=== PATIENT | male | born 1965 | race Caucasian/White ===

== ENCOUNTER 2022-05-28 13:51 | Emergency (ER) | payer OTHER, SELFPAY ==
[2022-05-28 14:18] VITALS: BP 131/99; PULSE 83; RESP 18; TEMP 36.8; O2SAT 97; BMI 36.5
--- NOTE | 2022-05-28 14:51 | ED.GENADULT ---
HPI - General Adult General Date Seen: 05/28/22 Chief complaint: Bug Bite Stated complaint: Mosquito bite on LT foot swollen and black Time Seen by Provider: 05/28/22 13:56 Source: patient History of Present Illness HPI narrative: Patient is a 56-year-old male who is here for evaluation of pain and redness in his left foot and ankle after an insect bite. He says that he was outside on evening, something bit him although he did not see exactly what it was. He assumes it was a mosquito. He did have a lot of reaction to it until yesterday, Sunday, when he developed redness and mild pain in his foot and ankle. He does not have a lot of itching. He does typically react somewhat to bug bites and so it is not that unusual for him, but his is in the hospital here for pancreatitis and it was recommended that he come get it checked out. He has not had any fevers or systemic complaints. Denies significant medical history aside from high blood pressure. Does not have diabetes. He has not taken any medications for this. Related Data Home Medications Medication Instructions Recorded Confirmed aspirin 81 mg capsule 81 mg PO DAILY 05/28/22 05/28/22 atorvastatin 10 mg tablet mg 05/28/22 lisinopril 10 mg tablet mg 05/28/22 Allergies Allergy/AdvReac Type Severity Reaction Status Date / Time Penicillins Allergy Intermediate Verified 05/28/22 14:21 Review of Systems Status of ROS: Reports: 10 or more systems reviewed and unremarkable except as noted in History and below Exam Narrative: Exam Narrative: Vital signs as noted above. In general, an alert, well-appearing patient. Head: Normocephalic, atraumatic. Eyes: Pupils are equal reactive. Extraocular movements are full. Conjunctivae are normal. ENT: Mucous membranes are moist. Throat is normal. Neck: Supple without lymphadenopathy. Heart: Regular rate and rhythm. No murmur or rub. Lungs: Clear bilaterally. No increased work of breathing, crackles or wheezes. Abdomen: Soft and nontender. No organomegaly. Extremities: On the left, there is a an insect bite near the medial ankle which has some blackish as sharp over it. Surrounding it on the medial ankle and into the foot, there is some edema and erythema extending to the distal lower leg. There is warmth to this, there is no fluctuance. No blistering. Dorsalis pedis pulse is normal. Neurologic: Patient is alert and oriented to person and place. Speech is fluent. Face is symmetric. Moves all extremities equally. Affect: Normal. Skin: Warm and dry. Well perfused. Const: Vital Signs, click to edit/add: Vital Signs - 24 hr 05/28/22 14:18 Temperature 98.3 F Pulse Rate [Pulse Oximeter] 83 Respiratory Rate 18 Blood Pressure [Ri ght Upper Arm] 131/99 H Pulse Oximetry 97 Oxygen Delivery Me thod Room Air Course Course Hospital Course: Discussed with him that in almost all cases this type of reaction is hypersensitivity and not cellulitis. I think arguing against this in his case is the fact that his response was delayed by home was 2 days, and the fact that he does not have any itching at all and his symptoms are only pain. In addition, he has erythema that is now extending up into his lower leg and involves most of his foot, and on balance I think he is best served by covering for possible cellulitis at this time. I did suggest to him that he also taken in histamine such as Zyrtec just to cover for hypersensitivity as well. I am prescribing Keflex. If he has dramatic worsening of redness, swelling or pain, if he develops new symptoms such as fever, chills etcetera he should be seen again. Vital Signs Vital signs: Initial Vital Signs Temperature 98.3 F 05/28/22 14:18 Temperature Source Temporal Artery Scan 05/28/22 14:18 Pulse Rate 83 05/28/22 14:18 Respiratory Rate 18 05/28/22 14:18 Blood Pressure 131/99 H 05/28/22 14:18 Blood Pressure Mean 109 05/28/22 14:18 Blood Pressure Position Supine 05/28/22 14:18 Pulse Oximetry 97 05/28/22 14:18 Oxygen Delivery Method 05/28/22 14:18 Vital Signs Temperature 98.3 F 05/28/22 14:18 Pulse Rate 83 05/28/22 14:18 Respiratory Rate 18 05/28/22 14:18 Blood Pressure 131/99 H 05/28/22 14:18 Pulse Oximetry 97 05/28/22 14:18 Oxygen Delivery Method 05/28/22 14:18 Temperature 98.3 F 05/28/22 14:18 Pulse Rate 83 05/28/22 14:18 Respiratory Rate 18 05/28/22 14:18 Blood Pressure 131/99 H 05/28/22 14:18 Pulse Oximetry 97 05/28/22 14:18 Oxygen Delivery Method 05/28/22 14:18 Discharge Plan Discharge Clinical Impression: Cellulitis Patient Disposition: Home, Self-Care Condition: Stable Instructions: Cellulitis (ED) Additional Instructions: Antibiotic as prescribed. I would also recommend taking an antihistamine such as Zyrtec daily, as there is often hypersensitivity reaction associated with insect bites that can be difficult to differentiate from cellulitis. If you have acute worsening, significant redness or swelling, or new symptoms such as fever, chills, vomiting you should be seen again. Prescriptions: No Action atorvastatin 10 mg tablet lisinopril 10 mg tablet Label Comments: TAKE 1 TABLET BY MOUTH AT BEDTIME aspirin 81 mg capsule 81 mg PO DAILY Follow Up/Referrals: Jonh Banerjee MD [Primary Care Provider] - Stand Alone Forms: [employer] Info Instructions
== END 2022-05-28 14:49 | disposition home or self-care (01) ==
LOC: ED 14:42
PROVIDERS: Emergency Provider Emergency Medicine; PCP Family Medicine
DX: S90.562A Insect bite (nonvenomous), left ankle, initial encounter (principal); S90.862A Insect bite (nonvenomous), left foot, initial encounter; L03.116 Cellulitis of left lower limb; W57.XXXA Bitten or stung by nonvenomous insect and other nonvenomous arthropods, initial encounter; Y93.89 Activity, other specified; Y92.017 Garden or yard in single-family (private) house as the place of occurrence of the external cause; Y99.8 Other external cause status
CPT/HCPCS: 99282; 99283

== ENCOUNTER 2022-11-06 08:51 | Outpatient (CLI) | payer OTHER, SELFPAY ==
[2022-11-06 14:17] LABS: Albumin* 4.5 g/dL (3.3-5.0)
[2022-11-06 14:18] LABS: Chloride* 105 mmol/L (96-114); Potassium* 4.4 mmol/L (3.6-5.1); Sodium* 137 mmol/L (135-149)
[2022-11-06 14:20] LABS: Aspartate Amino Transferase* 36 U/L (12-35); Bilirubin Total* 1.3 mg/dL (0.1-1.5); Carbon Dioxide* 23 mmol/L (20-32); Cholesterol* 150 mg/dL (90-199); Estimated Glomerular Filt Rate 87 ml/min; Total Protein* 7.6 g/dL (6.0-8.3)
[2022-11-06 14:21] LABS: Alanine Aminotransferase* 54 U/L (4-50); Alkaline Phosphatase* 57 U/L (40-150); Blood Urea Nitrogen* 18 mg/dL (7-30); Glucose* 95 mg/dL (60-115); HDL Cholesterol* 37 mg/dL (>=40); LDL Cholesterol Calculated 77 mg/dL (<100); Triglycerides* 179 mg/dL (40-149)
[2022-11-06 14:35] LABS: PSA Screen* 0.28 ng/mL (0.10-4.00)
== END 2022-11-06 08:52 | disposition home or self-care (01) ==
LOC: LKVREF 08:51
PROVIDERS: PCP Family Medicine; Visit Provider Family Medicine
DX: Z00.00 Encounter for general adult medical examination without abnormal findings (principal); E78.5 Hyperlipidemia, unspecified; K76.0 Fatty (change of) liver, not elsewhere classified; Z12.5 Encounter for screening for malignant neoplasm of prostate; Z13.29 Encounter for screening for other suspected endocrine disorder
CPT/HCPCS: 80053; 80061; 84153; 84443

== ENCOUNTER 2022-12-26 13:30 | Outpatient (CLI) | payer OTHER, SELFPAY ==
[2022-12-26 15:18] VITALS: BP 150/82; PULSE 100; RESP 20
[2022-12-26] MEDS: PERFLUTREN LIPID MICROSPHERES 2 ML VIAL IV (15:20)
--- NOTE | 2022-12-26 16:09 | W.PM.STED ---
Stress Test Note Date Date of test: 12/26/22 Providers Primary care provider: Roge Mayes Stress test physician: Casper Bocanegra Stress Test Note Stress test ordered: Stress Echo Indication for test: Shortness of breath Stress test medicine: Definity Results discussion: Patient is a very nice 49-year-old gentleman who presents the above test after discussion the risks benefits and side effects in review of the cardiac stress test medical history form he would like to proceed pretest EKG shows normal sinus rhythm, ventricular rate was 78, poor R-wave progression across the precordial leads is noted, he also has occasional PVCs, no acute ST wave changes. Blood pressure 145 to/82. During this test patient developed no chest pain he did have shortness of breath and conditioning was felt to be poor, patient exercised for a time period of 5 minutes 30 seconds, and achieved a metabolic equivalent of 7.1 Mets, which is maximum heart rate was 145, he did not have chest pain but was induced with shortness of breath, there were no dysrhythmias, Impression: Negative electrographic portion of stress echo, inducement of shortness of breath is noted, Follow up suggested: Await echo images, clinical correlation with these will be needed, conditioning was felt to be poor, patient left this testing facility in good condition, back to baseline.
== END 2022-12-26 15:22 | disposition home or self-care (01) ==
LOC: STRESS 13:31
PROVIDERS: PCP Family Medicine; Visit Provider Family Medicine
DX: R06.09 Other forms of dyspnea (principal); I49.9 Cardiac arrhythmia, unspecified
CPT/HCPCS: 93016; 93325; 93351; Q9957

== ENCOUNTER 2023-04-27 09:37 | Outpatient (CLI) | payer OTHER, SELFPAY | END 2023-04-27 09:38 | disposition home or self-care (01) | LOC: NFLDREF 04-29 08:40 | PROVIDERS: PCP Family Medicine; Visit Provider Family Medicine | DX: E03.9 Hypothyroidism, unspecified (principal) | CPT/HCPCS: 84443 ==

== ENCOUNTER 2024-02-21 08:26 | Outpatient (CLI) | payer OTHER, SELFPAY | END 2024-02-21 08:27 | disposition home or self-care (01) | LOC: NFLDREF 02-25 14:19 | PROVIDERS: PCP Family Medicine; Referring Provider Family Medicine; Visit Provider Family Medicine | DX: E03.9 Hypothyroidism, unspecified (principal); E78.5 Hyperlipidemia, unspecified; I49.9 Cardiac arrhythmia, unspecified; R03.0 Elevated blood-pressure reading, without diagnosis of hypertension; Z12.5 Encounter for screening for malignant neoplasm of prostate; Z13.1 Encounter for screening for diabetes mellitus | CPT/HCPCS: 80053; 80061; 84443; G0103 ==

== ENCOUNTER 2024-05-08 09:04 | Outpatient (CLI) | payer OTHER, SELFPAY | END 2024-05-08 09:05 | disposition home or self-care (01) | LOC: NFLDREF 05-11 06:39 | PROVIDERS: PCP Family Medicine; Referring Provider Family Medicine; Visit Provider Family Medicine | DX: E03.9 Hypothyroidism, unspecified (principal) | CPT/HCPCS: 84443 ==

== ENCOUNTER 2024-08-23 10:29 | Outpatient (CLI) | payer OTHER, SELFPAY | END 2024-08-23 10:30 | disposition home or self-care (01) | PROVIDERS: PCP Family Medicine; Visit Provider Nurse Practitioner Family | DX: R60.0 Localized edema (principal) | CPT/HCPCS: 83880; 84550 ==

== ENCOUNTER 2025-05-12 11:03 | Outpatient (CLI) | payer BC, SELFPAY | END 2025-05-12 11:04 | disposition home or self-care (01) | LOC: NFLDREF 05-17 04:57 | PROVIDERS: PCP Family Medicine; Referring Provider Family Medicine; Visit Provider Family Medicine | DX: E78.5 Hyperlipidemia, unspecified (principal); E03.9 Hypothyroidism, unspecified; Z12.5 Encounter for screening for malignant neoplasm of prostate | CPT/HCPCS: 80053; 80061; 84443; G0103 ==